=== PATIENT | male | born 1940 | race Caucasian/White ===

== ENCOUNTER 2019-07-25 16:04 | Emergency (ER) | payer MEDICARE, BC ==
[~2019-07-25] VITALS: Ht 172.7 cm; Wt 96.2 kg
[~2019-07-25 16:04] MED LIST: GLYB5TAB66; METF-370; insulin
[2019-07-25 17:04] LABS: Basophils # (auto) 0.1 uL; Basophils % (auto) 0.8 % (0.0-2.0); Eosinophils # (auto) 0.1 uL; Eosinophils % (auto) 1.4 % (0.0-7.0); Hematocrit 41.5 % (41.0-53.0); Hemoglobin 13.9 g/dL (13.5-17.5); Lymphocytes # (auto) 1.6 uL; Lymphocytes % (auto) 18.9 % (10.0-50.0); Mean Corpuscular Hemoglobin 30.2 pg (28.0-32.0); Mean Corpuscular Hgb Conc. 33.5 g/dL (32.0-36.0); Monocytes # (auto) 0.6 uL; Monocytes % (auto) 6.9 % (0.0-12.0); Platelet Count (auto) 214 10^3/uL (140-450); Red Blood Cells 4.62 10^6/uL (4.5-5.90); Red Cell Distribution Width 13.9 % (11.8-14.3); White Blood Cell 8.4 10^3/uL (4.4-10.8)
[2019-07-25 17:09] VITALS: BP 145/74
[2019-07-25 17:15] LABS: Albumin 3.4 g/dL (3.4-5.0); BUN/Creatinine Ratio 26.1; Potassium 4.2 mmol/L (3.5-5.1)
[2019-07-25 17:18] LABS: Bilirubin, Total 0.2 mg/dL (0.2-1.0); Total Protein 7.1 g/dL (6.4-8.2)
== END 2019-07-25 17:32 | disposition home or self-care (01) ==
LOC: ER 16:04
DX: S00.83XA Contusion of other part of head, initial encounter (principal); E11.9 Type 2 diabetes mellitus without complications; M19.90 Unspecified osteoarthritis, unspecified site; Z90.89 Acquired absence of other organs; W01.0XXA Fall on same level from slipping, tripping and stumbling without subsequent striking against object, initial encounter; Y93.89 Activity, other specified; Y99.8 Other external cause status; Y92.89 Other specified places as the place of occurrence of the external cause
CPT/HCPCS: 36415; 70450; 72125; 80053; 83735; 85025; 93005

== ENCOUNTER 2021-02-05 08:31 | Emergency (ER) | payer MEDICARE, BC ==
[~2021-02-05] VITALS: Ht 175.3 cm; Wt 95.3 kg
[2021-02-05] MEDS ORDERED: cefTRIAXone SOD 1,000 MG VL IM ONE ×2 (09:15→10:00)
[2021-02-05 09:34] VITALS: BP 125/62
[2021-02-05] MEDS ORDERED: cefTRIAXone W LIDOCAINE 1 GM IM IM ONE (09:45)
[2021-02-05] MEDS ORDERED: TETANUS-DIPTH-ACEL PERTUSSIS 0.5ML SYR Tdap IM ONE (10:15)
== END 2021-02-05 10:53 | disposition home or self-care (01) ==
LOC: ER 08:31
DX: J20.9 Acute bronchitis, unspecified (principal); M79.644 Pain in right finger(s); E11.9 Type 2 diabetes mellitus without complications; Z90.49 Acquired absence of other specified parts of digestive tract; Z90.89 Acquired absence of other organs; Z79.4 Long term (current) use of insulin; Z79.899 Other long term (current) drug therapy; Z20.822 Contact with and (suspected) exposure to COVID-19
CPT/HCPCS: 36415; 71046; 73140; 87426; 90471; 90715; 96372; 99284; J0696

== ENCOUNTER → 2022-10-25 | Outpatient (CLI) | payer MEDICARE, BC | END | disposition home or self-care (01) | LOC: LAB 08:35 | DX: E11.65 Type 2 diabetes mellitus with hyperglycemia (principal) | CPT/HCPCS: 36415; 83036 ==

== ENCOUNTER 2023-05-13 11:13 | Emergency (ER) | payer MEDICARE, BC ==
[~2023-05-13] VITALS: Ht 175.3 cm; Wt 210.0 kg
[2023-05-13 11:30] VITALS: BP 147/70; TEMP 97.4
[2023-05-13] MEDS ORDERED: SODIUM CHLORIDE 0.9% 1,000 ML IV ONE (12:00)
[2023-05-13 12:35] LABS: Basophils # (auto) 0.1 10 ^3/uL (0-0.2); Basophils % (auto) 0.8 % (0.0-2.0); Eosinophils # (auto) 0.2 10 ^3/uL (0-0.8); Eosinophils % (auto) 1.6 % (0.0-7.0); Hematocrit 43.8 % (41.0-53.0); Hemoglobin 14.4 g/dL (13.5-17.5); Lymphocytes # (auto) 1.2 10 ^3/uL (0.4-5.4); Mean Corpuscular Hemoglobin 29.7 pg (28.0-32.0); Mean Corpuscular Hgb Conc. 32.8 g/dL (32.0-36.0); Mean Corpuscular Volume 90.6 fL (80.0-100.0); Monocytes # (auto) 0.8 10 ^3/uL (0-1.3); Monocytes % (auto) 8.5 % (0.0-12.0); Neutrophils # (auto) 7.1 10 ^3/uL (1.6-8.6); Neutrophils % (auto) 76.1 % (37.0-80.0); Nucleated Red Blood Cells % 0.1 %; Red Blood Cells 4.84 10^6/uL (4.5-5.90); Red Cell Distribution Width 13.7 % (11.8-14.3); White Blood Cell 9.3 10^3/uL (4.4-10.8)
[2023-05-13 12:54] LABS: Alanine Aminotransferase 21 U/L (7-40); Albumin 4.1 g/dL (3.2-4.8); Alkaline Phosphatase 59 U/L (46-116); Anion Gap 6 (5-15); Aspartate Aminotransferase 15 U/L (13-40); BUN/Creatinine Ratio 17.6 (10.0-20.0); Blood Urea Nitrogen 19 mg/dL (9-23); Calcium 8.7 mg/dL (8.7-10.4); Carbon Dioxide 29 mmol/L (20-30); Chloride 103 mmol/L (98-107); Glucose 195 mg/dL (74-106); Potassium 4.2 mmol/L (3.5-5.1); Sodium 138 mmol/L (136-145)
[2023-05-13 12:55] LABS: Bilirubin, Total 0.6 mg/dL (0.2-1.0); Total Protein 6.4 g/dL (5.7-8.2)
[2023-05-13 13:37] VITALS: PULSE 65; RESP 16; O2SAT 97
[2023-05-13] MEDS ORDERED: CYCL-838 PO (15:38)
[2023-05-13] MEDS ORDERED: DICL50TA2 PO (15:38)
== END 2023-05-13 15:57 | disposition home or self-care (01) ==
LOC: ER 11:13 → EEVIPCON 11:13 → ER 15:57
DX: S32.592A Other specified fracture of left pubis, initial encounter for closed fracture (principal); S40.012A Contusion of left shoulder, initial encounter; S00.03XA Contusion of scalp, initial encounter; E11.65 Type 2 diabetes mellitus with hyperglycemia; M19.90 Unspecified osteoarthritis, unspecified site; Z98.890 Other specified postprocedural states; Z79.84 Long term (current) use of oral hypoglycemic drugs; Z79.899 Other long term (current) drug therapy; W01.0XXA Fall on same level from slipping, tripping and stumbling without subsequent striking against object, initial encounter; Y93.E1 Activity, personal bathing and showering; Y92.098 Other place in other non-institutional residence as the place of occurrence of the external cause; Y99.8 Other external cause status
CPT/HCPCS: 36415; 70450; 71045; 72125; 73030; 73700; 80053; 83735; 85025

== ENCOUNTER 2023-10-17 11:39 | Inpatient (IN) | payer MEDICARE, BC ==
[~2023-10-17] VITALS: Ht 175.3 cm; Wt 96.5 kg
[~2023-10-17 11:39] MED LIST changes: +CYCL-838 PO; +DICL50TA2 PO
[2023-10-17] MEDS ORDERED: MORPHINE SULFATE INJ 2 MG/ml SYRG IV PRN (13:00)
[2023-10-17] MEDS ORDERED: LORazepam 0.5 MG TAB PO PRN (13:00)
[2023-10-17] MEDS ORDERED: ONDANSETRON HCL 4 MG/2 ML VIAL IV PRN (13:00)
[2023-10-17] MEDS ORDERED: HYDROcodone-ACET 5/325MG TAB PO PRN (13:00)
[2023-10-17] MEDS ORDERED: VANCOMYCIN PER PHARMACY 0 MG IV SCH (13:00)
[2023-10-17] MEDS ORDERED: DEXTROSE (50%) 50ML SYRG IV PRN (13:00)
[2023-10-17] MEDS ORDERED: MAALOX PLUS or MAALOX 30 ML PO PRN (13:00)
[2023-10-17 15:00] VITALS: PULSE 51; RESP 18; O2SAT 98
[2023-10-17 15:08] LABS: Basophils # (auto) 0.1 10 ^3/uL (0-0.2); Basophils % (auto) 0.7 % (0.0-2.0); Eosinophils # (auto) 0.2 10 ^3/uL (0-0.8); Eosinophils % (auto) 2.5 % (0.0-7.0); Hematocrit 42.2 % (41.0-53.0); Hemoglobin 13.7 g/dL (13.5-17.5); Lymphocytes # (auto) 1.9 10 ^3/uL (0.4-5.4); Lymphocytes % (auto) 20.5 % (10.0-50.0); Mean Corpuscular Hemoglobin 29.5 pg (28.0-32.0); Mean Corpuscular Hgb Conc. 32.4 g/dL (32.0-36.0); Mean Corpuscular Volume 90.9 fL (80.0-100.0); Monocytes # (auto) 0.8 10 ^3/uL (0-1.3); Monocytes % (auto) 8.9 % (0.0-12.0); Neutrophils # (auto) 6.3 10 ^3/uL (1.6-8.6); Neutrophils % (auto) 67.4 % (37.0-80.0); Red Blood Cells 4.64 10^6/uL (4.5-5.90); Red Cell Distribution Width 14.8 % (11.8-14.3); White Blood Cell 9.4 10^3/uL (4.4-10.8)
[2023-10-17 15:20] LABS: Alanine Aminotransferase 19 U/L (7-40); Albumin 4.3 g/dL (3.2-4.8); Alkaline Phosphatase 51 U/L (46-116); Anion Gap 6 (5-15); Aspartate Aminotransferase 10 U/L (13-40); BUN/Creatinine Ratio 23.8 (10.0-20.0); Bilirubin, Total 0.5 mg/dL (0.2-1.0); Blood Urea Nitrogen 29 mg/dL (9-23); Calcium 9.8 mg/dL (8.7-10.4); Carbon Dioxide 27 mmol/L (20-30); Chloride 104 mmol/L (98-107); Glucose 153 mg/dL (74-106); Potassium 4.3 mmol/L (3.5-5.1); Sodium 137 mmol/L (136-145); Total Protein 6.9 g/dL (5.7-8.2)
[2023-10-17 15:42] LABS: CRP High Sensitivity 1.19 mg/dL (<1.0)
[2023-10-17 15:59] LABS: Erythrocyte Sedimentation Rate 23 mm/hr (0-20)
[2023-10-17] MEDS ORDERED: INSLANTI SC (16:04)
[2023-10-17] MEDS ORDERED: LEVO75TA6 PO (16:04)
[2023-10-17 17:00] VITALS: BP 154/59; PULSE 51; RESP 18; TEMP 97.3; O2SAT 98
[2023-10-17] MEDS: ACCU-CHEK COMFORT CURVE STRIP VI SCH (17:00)
[2023-10-17] MEDS: InsuLIN REG 1unit/0.01ml Soln (100units/ml) SC SCH (17:00)
[2023-10-17 17:16] LABS: Urine Bacteria None Seen /hpf (None Seen)
[2023-10-17 17:27] LABS: Urine Blood Negative /uL (Negative); Urine Clarity Clear (Clear); Urine Color Yellow (Yellow); Urine Mucus FEW (None Seen); Urine Protein, UAD 1+ (Negative); Urine Specific Gravity 1.029 (1.001-1.035); Urine Urobilinogen Normal (Negative); Urine WBC 2 /hpf (0 - 3); Urine pH 5.5 (5.0-9.0)
[2023-10-17] MEDS ORDERED: VANCOMYCIN 1GM/200ML 200 ML IV SCH (18:00)
[2023-10-17] MEDS: SODIUM CHLOR 0.9% PF (SALINE LOCK) 10ML VIAL/SYR IV SCH (18:07)
[2023-10-17] MEDS: CEFEPIME 1GM/ 50ML 50 ML IV ONE (18:13)
[2023-10-17 18:18] LABS: INR 1.1 (0.9-1.15); Prothrombin Time 11.5 sec (9.3-11.8)
[2023-10-17] MEDS ORDERED: LACTULOSE 20Gm/30ML SOLN PO PRN (19:00)
[2023-10-17] MEDS ORDERED: traMADol HCL 50 MG TAB PO PRN (19:00)
[2023-10-17] MEDS: VANCOMYCIN 1GM/200ML 200 ML IV SCH (20:15)
[2023-10-17 20:53] VITALS: BP 172/83; PULSE 78; RESP 16; TEMP 97.5; O2SAT 99
[2023-10-17] MEDS: hydrALAZINE HCL 20 MG/ML VL IV PRN (21:36)
[2023-10-17] MEDS ORDERED: InsuLIN REG 1unit/0.01ml Soln (100units/ml) SC SCH (22:00)
[2023-10-17] MEDS: INSULIN LANTUS (GLARGINE) 1 /0.01ml (100units/ml) SC SCH (22:00)
[2023-10-17 22:14] VITALS: BP 149/51; PULSE 58
[2023-10-18] VITALS (8 sets, daily range): BP systolic 99–157; BP diastolic 49–65; PULSE 51–63; RESP 14–24; TEMP 96.8–98.5; O2SAT 94–96
[2023-10-18 05:27] LABS: Basophils # (auto) 0.1 10 ^3/uL (0-0.2); Basophils % (auto) 1.1 % (0.0-2.0); Eosinophils # (auto) 0.3 10 ^3/uL (0-0.8); Eosinophils % (auto) 3.3 % (0.0-7.0); Hemoglobin 13.2 g/dL (13.5-17.5); Lymphocytes # (auto) 1.8 10 ^3/uL (0.4-5.4); Lymphocytes % (auto) 23.4 % (10.0-50.0); Mean Corpuscular Volume 90.9 fL (80.0-100.0); Monocytes # (auto) 0.7 10 ^3/uL (0-1.3); Monocytes % (auto) 9.3 % (0.0-12.0); Neutrophils # (auto) 4.8 10 ^3/uL (1.6-8.6); Neutrophils % (auto) 62.9 % (37.0-80.0); Red Cell Distribution Width 14.9 % (11.8-14.3); White Blood Cell 7.6 10^3/uL (4.4-10.8)
[2023-10-18 05:38] LABS: Anion Gap 8 (5-15); Carbon Dioxide 22 mmol/L (20-30); Chloride 106 mmol/L (98-107); Sodium 136 mmol/L (136-145)
[2023-10-18 05:39] LABS: Calcium 9.5 mg/dL (8.7-10.4)
[2023-10-18 05:44] LABS: BUN/Creatinine Ratio 25.8 (10.0-20.0); Blood Urea Nitrogen 24 mg/dL (9-23); Glucose 127 mg/dL (74-106)
[2023-10-18] MEDS: CEFEPIME 1GM/ 50ML 50 ML IV SCH (05:53)
[2023-10-18] MEDS: LEVOTHYROXINE SODIUM 25 MCG TAB PO SCH (06:07)
[2023-10-18] MEDS: DOCUSATE SOD 100 MG CAP PO ONE (10:25)
[2023-10-18] MEDS: ERGOCALCIFEROL 50,000 UNIT(1.25MG) CAP PO SCH (10:25)
[2023-10-18] MEDS: LACTULOSE 20Gm/30ML SOLN PO ONE (10:25)
[2023-10-18] MEDS: LIDOCAINE 1% (LOCAL ANESTH.) PF 5ml SDV ID ONE (14:10)
[2023-10-18] MEDS: SODIUM CHLOR 0.9% PF (SALINE LOCK) 10ML VIAL/SYR IV SCH (21:09)
[2023-10-19] VITALS (7 sets, daily range): BP systolic 124–174; BP diastolic 43–82; PULSE 59–64; RESP 14–19; TEMP 36.2; O2SAT 97–99
== END 2023-10-19 14:45 | disposition home health service (06) | DRG 638 ==
LOC: EEVIPCON 11:39 → OVERFLOW 11:39 → UNDOADMIN 11:39 → OVERFLOW 12:56 → CENTRAL 14:27
PROVIDERS: ADMIT Internal Medicine; ATTEND Internal Medicine
PROC: 05HB33Z Insertion of Infusion Device into Right Basilic Vein, Percutaneous Approach (ICD-10-PCS; principal; 2023-10-18)
PROC: B54MZZA Ultrasonography of Right Upper Extremity Veins, Guidance (ICD-10-PCS; 2023-10-18)
DX: E11.69 Type 2 diabetes mellitus with other specified complication (principal); M86.8X7 Other osteomyelitis, ankle and foot; E11.51 Type 2 diabetes mellitus with diabetic peripheral angiopathy without gangrene; I70.201 Unspecified atherosclerosis of native arteries of extremities, right leg; M19.071 Primary osteoarthritis, right ankle and foot; M20.40 Other hammer toe(s) (acquired), unspecified foot; E03.9 Hypothyroidism, unspecified; L97.529 Non-pressure chronic ulcer of other part of left foot with unspecified severity; Z79.899 Other long term (current) drug therapy; Z79.4 Long term (current) use of insulin
CPT/HCPCS: 36415; 36569; 71045; 80048; 80053; 80202; 81001; 82043; 82306; 82607; 83036; 84439; 84443; 85025; 85610; 85652; 86141; 93005; 93926; G0378; J1815

== ENCOUNTER 2023-11-28 10:11 | Inpatient (IN) | payer MEDICARE, BC ==
[~2023-11-28] VITALS: Ht 182.9 cm; Wt 95.1 kg
[2023-11-28] VITALS (7 sets, daily range): BP systolic 138–153; BP diastolic 51–88; PULSE 58–66; RESP 14–19; TEMP 97.9–98.2; O2SAT 95–100
[~2023-11-28 10:11] MED LIST changes: +INSLANTI SC; +LEVO75TA6 PO
[2023-11-28 10:49] LABS: Basophils # (auto) 0.1 10 ^3/uL (0-0.2); Basophils % (auto) 0.9 % (0.0-2.0); Eosinophils # (auto) 0.4 10 ^3/uL (0-0.8); Eosinophils % (auto) 4.7 % (0.0-7.0); Hematocrit 39.8 % (41.0-53.0); Lymphocytes # (auto) 0.9 10 ^3/uL (0.4-5.4); Lymphocytes % (auto) 10.3 % (10.0-50.0); Mean Corpuscular Hemoglobin 29.3 pg (28.0-32.0); Mean Corpuscular Hgb Conc. 32.8 g/dL (32.0-36.0); Mean Corpuscular Volume 89.4 fL (80.0-100.0); Monocytes # (auto) 0.7 10 ^3/uL (0-1.3); Monocytes % (auto) 8.3 % (0.0-12.0); Neutrophils # (auto) 6.8 10 ^3/uL (1.6-8.6); Neutrophils % (auto) 75.8 % (37.0-80.0); Red Blood Cells 4.45 10^6/uL (4.5-5.90)
[2023-11-28 10:59] LABS: Chloride 107 mmol/L (98-107); Potassium 4.3 mmol/L (3.5-5.1); Sodium 139 mmol/L (136-145)
[2023-11-28 11:00] LABS: Anion Gap 8 (5-15); Calcium 9.9 mg/dL (8.7-10.4); Carbon Dioxide 24 mmol/L (20-30)
[2023-11-28 11:05] LABS: BUN/Creatinine Ratio 21.7 (10.0-20.0); Blood Urea Nitrogen 25 mg/dL (9-23); Glucose 154 mg/dL (74-106)
[2023-11-28] MEDS: HYDROcodone-ACET 5/325MG TAB PO ONE (11:10)
[2023-11-28] MEDS: LIDOCAINE 1% (LOCAL ANESTH.) PF 5ml SDV ID ONE (11:49)
[2023-11-28] MEDS: ACETAMINOPHEN 325 MG TAB PO ONE (11:52)
[2023-11-28] MEDS ORDERED: VANCOMYCIN PER PHARMACY 0 MG IV SCH ×2 (12:00→13:15)
[2023-11-28] MEDS: VANCOMYCIN 1GM/200ML 200 ML IV ONE (12:26)
[2023-11-28] MEDS ORDERED: MORPHINE SULFATE INJ 2 MG/ml SYRG IV PRN (13:15)
[2023-11-28] MEDS ORDERED: HYDROcodone-ACET 5/325MG TAB PO PRN (13:15)
[2023-11-28] MEDS ORDERED: DEXTROSE (50%) 50ML SYRG IV PRN (13:15)
[2023-11-28] MEDS ORDERED: NITROGLYCERIN 0.4 MG SL TAB SL PRN (13:15)
[2023-11-28] MEDS ORDERED: ONDANSETRON HCL 4 MG/2 ML VIAL IV PRN (13:15)
[2023-11-28] MEDS ORDERED: hydrALAZINE HCL 20 MG/ML VL IV PRN (13:45)
[2023-11-28] MEDS ORDERED: DICLOFENAC POTASSIUM 50 MG PO SCH (14:00)
[2023-11-28] MEDS: ACETAMINOPHEN 325 MG TAB PO PRN (15:24)
[2023-11-28] MEDS: InsuLIN REG 1unit/0.01ml Soln (100units/ml) SC SCH (17:00)
[2023-11-28] MEDS: ACCU-CHEK COMFORT CURVE STRIP VI SCH (17:00)
[2023-11-28] MEDS ORDERED: CYCLOBENZAPRINE HCL 7.5 MG PO SCH (22:00)
[2023-11-28] MEDS: DOCUSATE SOD 100 MG CAP PO SCH (22:17)
[2023-11-28] MEDS: ASCORBIC ACID 500 MG TAB PO SCH (22:17)
[2023-11-28] MEDS: IBUPROFEN 800 MG TAB PO ONE (22:17)
[2023-11-29 01:00] VITALS: BP 165/65; PULSE 57; RESP 18; TEMP 98.6; O2SAT 95
[2023-11-29] MEDS: VANCOMYCIN 1GM/200ML 200 ML IV SCH (04:27)
[2023-11-29 05:00] VITALS: BP 128/65; PULSE 51; RESP 17; TEMP 98.1; O2SAT 95
[2023-11-29] MEDS: LEVOTHYROXINE SODIUM 25 MCG TAB PO SCH (06:02)
[2023-11-29 06:37] LABS: Basophils # (auto) 0.1 10 ^3/uL (0-0.2); Basophils % (auto) 0.8 % (0.0-2.0); Eosinophils # (auto) 0.5 10 ^3/uL (0-0.8); Eosinophils % (auto) 5.3 % (0.0-7.0); Hematocrit 36.7 % (41.0-53.0); Hemoglobin 12.3 g/dL (13.5-17.5); Lymphocytes # (auto) 1.7 10 ^3/uL (0.4-5.4); Lymphocytes % (auto) 17.8 % (10.0-50.0); Mean Corpuscular Hemoglobin 30.2 pg (28.0-32.0); Mean Corpuscular Hgb Conc. 33.5 g/dL (32.0-36.0); Monocytes % (auto) 10.7 % (0.0-12.0); Neutrophils # (auto) 6.1 10 ^3/uL (1.6-8.6); Neutrophils % (auto) 65.4 % (37.0-80.0); Nucleated Red Blood Cells % 0.1 %; Red Blood Cells 4.07 10^6/uL (4.5-5.90); Red Cell Distribution Width 14.1 % (11.8-14.3); White Blood Cell 9.4 10^3/uL (4.4-10.8)
[2023-11-29 06:38] LABS: Alanine Aminotransferase 19 U/L (7-40); Albumin 3.9 g/dL (3.2-4.8); Alkaline Phosphatase 42 U/L (46-116); Anion Gap 8 (5-15); Aspartate Aminotransferase 14 U/L (13-40); BUN/Creatinine Ratio 22.2 (10.0-20.0); Bilirubin, Total 0.5 mg/dL (0.2-1.0); Blood Urea Nitrogen 24 mg/dL (9-23); Calcium 9.5 mg/dL (8.7-10.4); Carbon Dioxide 23 mmol/L (20-30); Chloride 109 mmol/L (98-107); Glucose 125 mg/dL (74-106); Potassium 3.8 mmol/L (3.5-5.1); Sodium 140 mmol/L (136-145); Total Protein 6.1 g/dL (5.7-8.2)
[2023-11-29 08:00] VITALS: PULSE 55; RESP 18; O2SAT 97
[2023-11-29 09:00] VITALS: BP 160/65; PULSE 55; RESP 19; TEMP 98; O2SAT 93
[2023-11-29] MEDS: ZINC SULFATE 220mg CAP or TAB PO SCH (09:45)
[2023-11-29] MEDS: MULTIPLE VITAMIN TAB PO SCH (09:45)
[2023-11-29 11:02] VITALS: TEMP 36.7
== END 2023-11-29 11:00 | disposition home health service (06) | DRG 605 ==
LOC: ER 10:11 → OVERFLOW 13:13 → TELE-CENTR 14:45
PROVIDERS: ADMIT Nurse Practitioner Family; ATTEND Internal Medicine
DX: S01.01XA Laceration without foreign body of scalp, initial encounter (principal); M86.8X7 Other osteomyelitis, ankle and foot; E78.5 Hyperlipidemia, unspecified; E03.9 Hypothyroidism, unspecified; M19.09 Primary osteoarthritis, other specified site; M50.30 Other cervical disc degeneration, unspecified cervical region; E11.51 Type 2 diabetes mellitus with diabetic peripheral angiopathy without gangrene; E11.69 Type 2 diabetes mellitus with other specified complication; Z90.49 Acquired absence of other specified parts of digestive tract; Z79.4 Long term (current) use of insulin; W01.0XXA Fall on same level from slipping, tripping and stumbling without subsequent striking against object, initial encounter; Y93.89 Activity, other specified; Y92.89 Other specified places as the place of occurrence of the external cause; Y99.8 Other external cause status
CPT/HCPCS: 12004; 36415; 70450; 72125; 80048; 80053; 83036; 85025; 96365; G0378